=== PATIENT | female | born 1980 | race African-American/Black ===

== ENCOUNTER 2019-09-20 12:37 | Emergency (ER) | payer SELFPAY ==
[2019-09-20 12:43] VITALS: BP 121/70
[2019-09-20] MEDS ORDERED: TETRACAINE HCL 0.5% OPH SOLN 4 ML OD ONE (12:52)
--- NOTE | 2019-09-20 13:03 | ER Document Report ---
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 Reports it started around Janny time she felt was getting better but now the eye is red and she woke up this morning with drainage matting to the area. Denies trauma. Does not wear contacts. Denies fever vomiting diarrhea. Unknown exposure to bacterial conjunctivitis. 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 IN LAST 30 DAYS: No - HEENT HEENT: Atraumatic, Conjuctival Injection - With dried discharge noted around her eye, Normocephalic - NECK Neck: Supple - RESPIRATORY Respiratory: No Respiratory Distress - CARDIOVASCULAR Cardiovascular: Regular Rate - MUSCULOSKELETAL/EXTREMETIES Musculoskeletal/Extremeties: LAYLA BENSON - NEURO Level of Consciousness: Awake, Alert, Appropriate Motor/Sensory: No Motor Deficit - DERM Integumentary: Warm, Dry Course - Re-evaluation Re-evalutation: 09/20/19 13:51 Patient was instructed on bacterial conjunctivitis. Instructed on Besivance. Instructed on signs and symptoms of allergic reaction. Started on the importance of follow-up with guardian ad litem. She was also instructed to not reuse eye make-up. She verbalized understanding to all instructions. - Vital Signs Vital signs: Temp Pulse Resp BP Pulse Ox 98.1 F 74 16 121/70 99 09/20/19 12:42 09/20/19 12:42 09/20/19 12:42 09/20/19 12:42 09/20/19 12:42 Procedures - Eye Procedure Right Eye Irrigated w/ Saline (ccs): 10 Alcaine Drops Administered: Yes - tetracaine Fluorescein applied: Right Slit lamp used: No Notes: 09/20/19 13:52 Zepeda lamp utilized. Patient tolerated procedure well Discharge - Discharge Clinical Impression: Irritation of right eye, Bacterial conjunctivitis of right eye Condition: Stable Disposition: HOME, SELF-CARE Additional Instructions: *You have been evaluated for eye irritation, bacterial conjunctivitis *Use eye drops as prescribed: Instill 1 drop into right eye 3 times daily (4 to 12 hours apart) for 7 days *Good hand washing- Do not reuse wash clothes or towels after wiping eyes *Follow up with an guardian ad litem within 1 week for recheck *Return to ED for worsening condition, changes, needs Forms: Return to Work
[2019-09-20] MEDS ORDERED: BESIFLOXACIN HCL 0.6% OPH SUSP 5 ML BOTTLE OD ONE (13:47)
== END 2019-09-20 13:59 | disposition home or self-care (01) ==
LOC: ER 12:37
DX: H10.9 Unspecified conjunctivitis (principal); B96.89 Other specified bacterial agents as the cause of diseases classified elsewhere; J45.909 Unspecified asthma, uncomplicated
CPT/HCPCS: 99282; J3490

== ENCOUNTER 2019-09-21 11:55 | Emergency (ER) | payer SELFPAY ==
[2019-09-21 12:37] VITALS: BP 100/68
--- NOTE | 2019-09-21 12:41 | ER Document Report ---
HPI - HPI Patient complains to provider of: Medication concern Time Seen by Provider: 09/21/19 12:33 Onset: Yesterday Onset/Duration: Sudden Quality of pain: No pain Context: 38-year-old female presents to the emergency department with concerns over the Besivance she was prescribed yesterday for bacterial conjunctivitis. She reports when she put in her eyes it was foamy and it seemed to be . She denies pain. No erythema no swelling to the eye. Associated Symptoms: None Exacerbated by: Denies Relieved by: Denies Similar symptoms previously: Yes Recently seen / treated by doctor: Yes - REPRODUCTIVE Reproductive: DENIES: : Past Medical History - General Information source: Patient - Social History Smoking Status: Unknown if Ever Smoked Occupation: [employer] Lives with: Family Family History: None Patient has suicidal ideation: No Patient has homicidal ideation: No Pulmonary Medical History: Reports: Hx Asthma Past Surgical History: Reports: Hx Section, Hx Gynecologic Surgery Vertical Provider Document - CONSTITUTIONAL Agree With Documented VS: Yes Exam Limitations: No Limitations General Appearance: WD/WN, No Apparent Distress - INFECTION CONTROL TRAVEL OUTSIDE OF THE [place] IN LAST 30 DAYS: No - HEENT HEENT: negative: Conjuctival Injection - NECK Neck: Supple - RESPIRATORY Respiratory: No Respiratory Distress - CARDIOVASCULAR Cardiovascular: Regular Rate - MUSCULOSKELETAL/EXTREMETIES Musculoskeletal/Extremeties: MAEW, FROM - NEURO Level of Consciousness: Awake, Alert, Appropriate Motor/Sensory: No Motor Deficit - DERM Integumentary: Warm, Dry, No Rash Course - Re-evaluation Re-evalutation: 09/21/19 12:47 Pharmacy was contacted regarding Besivance. They report it is possibly foamy when it is applied. They suggested patient keep the eye closed for at least 1 minute after application. Patient was instructed on signs and symptoms of allergic reaction. She was instructed to return here for periorbital erythema warmth swelling and any concerns. She verbalized understanding to all instructions. Discharge - Discharge Clinical Impression: Bacterial conjunctivitis of right eye Condition: Stable Disposition: HOME, SELF-CARE Instructions: Conjunctivitis ([facility]) Additional Instructions: *You have been evaluated for eye irritation, bacterial conjunctivitis *Use eye drops as prescribed-1 drop into the right eye 3 times a day for 7 days, after you instill the drops keep your eye closed for at least 1 minute. *Good hand washing- Do not reuse wash clothes or towels after wiping eyes *Follow up with an coffee shop attendant for recheck within one week *Return to ED for worsening condition, changes, needs
== END 2019-09-21 12:46 | disposition home or self-care (01) ==
LOC: ER 11:55
DX: H10.021 Other mucopurulent conjunctivitis, right eye (principal)
CPT/HCPCS: 99283

== ENCOUNTER 2019-09-25 15:43 | Emergency (ER) | payer OTHER ==
[2019-09-25] MEDS ORDERED: IBUPROFEN 600 MG TABLET PO ONE (16:35)
[2019-09-25] MEDS ORDERED: METHOCARBAMOL 750 MG TABLET PO ONE (16:36)
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
[2019-09-25 18:44] VITALS: BP 123/81
== END 2019-09-25 18:43 | disposition home or self-care (01) ==
LOC: ER 15:43
DX: M54.6 Pain in thoracic spine (principal); M54.5 Low back pain; V89.2XXA Person injured in unspecified motor-vehicle accident, traffic, initial encounter
CPT/HCPCS: 99283; 72110; 72070; J3490

== ENCOUNTER → 2019-12-27 | Outpatient (CLI) | payer SELFPAY ==
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
== END ==
LOC: RAD 10:10
PROVIDERS: ATTEND Nurse Practitioner Family
DX: Z34.81 Encounter for supervision of other normal pregnancy, first trimester (principal)
CPT/HCPCS: 76801